=== PATIENT | female | born 1980 | race African-American/Black ===

== ENCOUNTER 2020-08-08 01:12 | Outpatient (CLI) | payer OTHER, SELFPAY ==
[2020-08-08 18:47] LABS: SARS-CoV-2 RNA PCR Negative
== END 2020-08-08 01:13 | disposition home or self-care (01) ==
LOC: ANHCOVIDDT 01:12
PROVIDERS: Visit Provider Student in an Organized Health Care Education/Training Program
DX: Z20.822 Contact with and (suspected) exposure to COVID-19 (principal)
CPT/HCPCS: C9803; U0003; U0005

== ENCOUNTER 2020-08-11 09:31 | Outpatient (CLI) | payer OTHER, SELFPAY ==
[2020-08-11 09:51] LABS: Hematocrit 37.3 % (37.0-47.0); Hemoglobin 12.1 g/dL (12.0-15.0); Mean Corpuscular HGB Conc 32.4 g/dl (32-36); Mean Corpuscular Hemoglobin 26.7 pg (26-34); Mean Corpuscular Volume 82.3 fl (80-100); Mean Platelet Volume 9.5 fl (7.4-10.4); Platelet Count Result 315 k/mm3 (150-375); Red Blood Count 4.53 M/mm3 (4.2-5.4); Red Cell Distribution Width 14.1 % (11.5-14.5); White Blood Count 5.5 K/mm3 (4.5-10.0)
== END 2020-08-11 09:32 | disposition home or self-care (01) ==
LOC: ANHSURGERY 09:32
PROVIDERS: Visit Provider Student in an Organized Health Care Education/Training Program
DX: N94.6 Dysmenorrhea, unspecified (principal); Z01.818 Encounter for other preprocedural examination
CPT/HCPCS: 36415; 85027; 86850; 86900; 86901

== ENCOUNTER 2020-08-12 01:23 | Day surgery (SDC) | payer OTHER, SELFPAY ==
[2020-08-10 12:42] VITALS: BMI 24.8
[2020-08-12] VITALS (12 sets, daily range): BP systolic 109–134; BP diastolic 68–84; PULSE 56–76; RESP 10–16; TEMP 36.1–36.6; O2SAT 97–100
--- NOTE | 2020-08-12 08:01 | PM.IMHP ---
H&P: HPI History of Present Illness Date/Time: 08/12/20 08:01 Chief Complaint: abnormal uterine bleeding Narrative: Ifeanyi Rojas is a 40 year old female who presents for robotic TLH/BS for abnormal uterine bleeding. Pt initially presented to the office complaining of heavy and irregular menses. Pt was having bleeding every 2 weeks and heavy enough to soak through her clothes. Pt has tried multiple medical treatments in the past without improvement in her bleeding. Review of Systems Cardiovascular: Cardiovascular: Denies chest pain, Denies leg edema, Denies palpitations, Denies dyspnea and Denies dyspnea on exertion Respiratory: Respiratory: Denies cough, Denies dyspnea and Denies dyspnea on exertion Gastrointestinal: Gastrointestinal: Denies abdominal pain, Denies constipation, Denies diarrhea, Denies nausea and Denies vomiting Genitourinary: Genitourinary: Denies hematuria, Denies urinary frequency, Denies dysuria, Denies pelvic pain, Denies urinary incontinence and Denies vaginal discharge Neurologic: Reports system reviewed and no additional complaints, except as documented Psychiatric: Psychiatric: Reports no additional psychiatric complaints Endocrine: Endocrine: Denies palpitations [facility] Social History Social History Smoking packs per day: 0.5 Smoking cigarettes per day: 10.0 Years smoked: 20 Smoking pack-years: 10.00 Smoking status: Current every day smoker Tobacco type: cigarettes Alcohol intake: current Drinks per week: 2 Alcohol use details: 1-2 DRINKS EVERY COUPLE OF WEEKS Substance use: never Substance use type: does not use Living arrangements: with family Spiritual care concerns: No Meds Home Medications and Allergies Home Medications Medication Instructions Recorded Confirmed Type No Home Medications 08/10/20 08/10/20 History Allergies Allergy/AdvReac Type Severity Reaction Status Date / Time No Known Allergies Allergy Unverified 10/26/17 14:06 Exam Const: General: no acute distress Eyes: EOM: EOMs intact bilaterally Neck: Neck: supple Thyroid: thyroid normal Chest: Breast/axilla inspection: normal inspection of the breasts Breast/axilla palpation: normal palpation of the breasts, normal palpation of the axillae and no axillary lymphadenopathy Resp: Effort & Inspection: normal respiratory effort Auscultation: clear to auscultation bilaterally Cardio: Rate: regular rate Rhythm: regular rhythm GI: Inspection: non-distended GI Palp: Yes Soft to palpation, No Tenderness to palpation present (GI) and No Guarding due to palpation present (GI) Auscultation: normal bowel sounds : General: No bladder normal to palpation External Female Exam: normal external appearance Speculum Exam - Vagina: normal vaginal discharge and No vaginal bleeding Speculum Exam - Cervix: nontender Bimanual exam- vagina & uterus: No bladder normal to palpation and No Cervical tenderness present OB/external & speculum: No vaginal bleeding Skin: General skin exam: normal color and no rashes or lesions noted Neuro: Cognition (Neuro): normal cognition Speech: normal speech Extrem: General: normal to inspection and no edema Psych: Mental Status: mental status grossly normal Affect: normal affect Assessment and Plan Assessment and plan (1) Abnormal uterine bleeding (AUB): Code(s): N93.9 - Abnormal uterine and vaginal bleeding, unspecified Status: Acute Assessment and Plan: pt reports heavy irregular menses occuring every 2 weeks and bleeding through clothing pt has failed multiple hormonal medication treatments US showed uterus measuring 7.8x5.5x4.5 cm will plan for robotic TLH/BS
--- NOTE | 2020-08-12 08:05 | WPDHPUPDATE1 ---
History and Physical Update Update Date/Time: 08/12/20 08:05 History and Physical has been reviewed, including an updated exam of the patient. There are NO changes in the patient's condition. Risks, benefits, and alternatives have been discussed and questions answered. Patient agrees to proceed with procedure.
[2020-08-12] MEDS: ACETAMINOPHEN 500 MG TABLET 1000 MG PO (12:22)
[2020-08-12] MEDS: LACTATED RINGERS 1,000 ML 30 ML IV CONT ×2 (12:30→17:44)
[2020-08-12] MEDS: KETOROLAC 15 MG/ML VIAL (*BKC) IV PUSH (12:35)
--- NOTE | 2020-08-12 13:27 | WPDANESEPPF ---
Anes - Initial Pre Proc Eval Procedure: Operation Date: 08/12/20 14:00 Proposed Procedures p Robotic Assisted Total Vaginal Hysterectomy, Bilateral Salpingectomy - Phil Banerjee MD Date/Time: 08/12/20 13:27 Surgeon: Phil Banerjee MD Pre Op Diagnosis: Excessive bleeding, Dysmenorrhea Patient Data Age: 40 Gender: F Height: 5 ft 2 in Weight: 64 kg Last Vital Signs Temp 97.8 F 08/12/20 12:07 Pulse 76 08/12/20 12:07 Resp 14 08/12/20 12:07 BP 129/84 08/12/20 12:07 Pulse Ox 100 08/12/20 12:07 Allergies Allergy/AdvReac Type Severity Reaction Status Date / Time No Known Allergies Allergy Unverified 08/12/20 13:00 Home Medications Medication Instructions Recorded Confirmed Type No Home Medications 08/10/20 08/12/20 History Patient hx anesthesia problems: none Family hx anesthesia problems: none PMFSH Past Medical History Medical History (Updated 08/12/20 @ 13:18 by Jad Beverly MD) Bronchitis history of Social History Social History Smoking packs per day: 0.5 Smoking cigarettes per day: 10.0 Years smoked: 20 Smoking pack-years: 10.00 Smoking status: Current every day smoker Tobacco type: cigarettes Alcohol intake: current Drinks per week: 2 Alcohol use details: 1-2 DRINKS EVERY COUPLE OF WEEKS Substance use: never Substance use type: does not use Living arrangements: with family Spiritual care concerns: No Anes - Eval Final PreProcedure Day of Procedure 08/12/20 13:27 Patient weight: overweight Heart: regular rate and rhythm Lungs: clear to auscultation Airway: Mallampati scale class II Neurological: alert and oriented Last oral intake: >/= 8 hours ASA classification: II Emergent: no Anesthetic plan: proceed Anesthesia type and monitoring: general ETT and standard monitoring Informed Consent: The patient's anesthetic plan and its attendant risks and benefits were discussed with the patient/family/POA. Questions were solicited and answers provided to the satisfaction of the patient/family/POA.
--- NOTE | 2020-08-12 14:53 | SUR.PREOP ---
1420 informed pt of delay in procedure.
[2020-08-12] MEDS: ceFAZolin 2 GM/D5W 50 ML 2 GM/50 ML BAG IVPB (15:35)
[2020-08-12] MEDS: LIDO 1%/EPINEPHRINE 1:100,000 50 ML VIAL 30 ML INFILTRATE (16:21)
--- NOTE | 2020-08-12 17:29 | PM.PROC ---
Procedure Note - Detailed Date of procedure: 08/12/20 Pre-op diagnosis: Excessive bleeding, Dysmenorrhea Procedure performed: Robotic assisted total laparoscopic hysterectomy bilateral salpingectomy 30 min of lysis of adhesions Description of procedure: PROCEDURE IN DETAIL: After the patient was appropriately consented she was taken to the operating room where she was transferred to the table in a dorsal supine position. General anesthesia was then induced with endotracheal intubation. The patient was transferred to a dorsal lithotomy position using adjustable yellow-fin stirrups. Her position was adjusted for appropriate support of her lower back and lower extremities. The patient was prepped and draped. A transurethral tapia catheter was place. The cervix was sequentially dilated and a 8 cm uterine manipulator placed in typical fashion about a 3.5 cm HAROON ring. Gloves were changed. After confirmation of a functioning orogastric tube, lidocaine was injected at Ruiz's point in the LUQ and a 5mm incision was made. A 5mm Optiview trocar was then inserted into the abdominal cavity under direct visualization and done so without complication. The abdomen was then insufflated with approximately 2-3L of CO2 establishing a pneumoperitoneum and the patient was placed in Trendelenburg position. Pelvic survery was performed and showed dense adhesions of the bowel omentum to the midline anterior abdominal wall. An 8mm torcar was placed in the RLQ under direct visualization. Laparoscopic scissors were then used to take down the midline adhesions. Lysis of adhesions took 30 min. Just above the umbilicus in the midline, a 8 mm incision made after injection of lidocaine and a 8 mm bladeless trocar advanced into the abdominal cavity under direct visualization without incident. We subsequently placed a robotic port in a similar fashion, in the left mid-quadrant, 10cm lateral to the midline port. The robot was then docked. The Left fallopian tube was identified out to the fimbrae. The fallopian tube was then coagulated and ligated along the inferior mesosalpinx toward the uterus. The utero-ovarian ligament was identified and ligated. The Left round ligament was divided and the posterior aspect of the broad ligament was then skeletonized down to the level of the internal cervical os, mobilizing the ureter laterally. The bladder flap was then created sharply. The ipsilateral uterine artery was skeletonized, bipolar cauterized and transected. A similar procedure was performed on the contralateral side, developing the pelvic spaces, coagulating and dividing the IP away from the ureter, completing the bladder flap, and skeletonizing, ligating, and dividing the uterine artery on this side. We ensured the vaginal pneumo-occluder balloon was insufflated and made a circumferential colpotomy using monopolar current. The uterus, cervix, and bilateral tubes were then delivered transvaginally. I then re-approximated the colpotomy with a single interuppted 0-vicryl at the left apex and running #1 PDO Quill suture in 2 layers. Following this dissection, the abdomen and pelvis were copiously irrigated and all surgical sites found to be hemostatic. Skin sites were reapproximated with 4-0 Vicryl in a subcuticular fashion. Steri-Strips were placed. The patient tolerated the procedure well. Sponge, needle and instrument counts were correct x 2 and the patient was taken to recovery in stable condition. Ancef was given for antimicrobial prophylaxis. The patient had SCD's on for VTE prophylaxis during the entire procedure. Anesthesia: GETA Surgeon: Phil Banerjee MD Estimated blood loss (mL): 50 Drains: No Packing: No Pathology: yes (uterus, cervix, bilateral fallopian tubes) Complications: No immediate complications Condition: stable Disposition: PACU Findings: Dense adhesions between the omentum and the midline anterior abdominal wall
[2020-08-12] MEDS: fentaNYL CITRATE INJ (*CRX) 100 MCG/2 ML VIAL 25 MCG IV PUSH ×2 (18:07→18:20)
--- NOTE | 2020-08-12 18:46 | ADMGEN ---
This patient, Ifeanyi Rojas, was admitted to room #287. Patient/family oriented to hospital policies and general routines including ID bracelet, bed and alarms, visiting hours, pain management, procedures, bathroom and other care routines, personal items, smoking policy, room service/diet, and visiting hours. Information on how to activate the Rapid Response Team has been discussed. Patient/Family are encouraged to report perceived risks to care and to ask questions if they do not understand what they are told or what they should do.
[2020-08-12] MEDS: DEXTROSE 5%/LACTATED RINGERS 1,000 ML 125 ML IV CONT (19:26)
[2020-08-12] MEDS: KETOROLAC 30 MG/ML VIAL (*BKC) IV PUSH (19:26)
[2020-08-12] MEDS: HYDROcodone/acetaminophen (*CRX) 10-325 MG TABLET 1 TAB PO (23:24)
[2020-08-13] VITALS: BP 106/60; PULSE 61; RESP 16; TEMP 36.5; O2SAT 96
[2020-08-13] MEDS: HYDROcodone/acetaminophen (*CRX) 10-325 MG TABLET 1 TAB PO ×2 (02:33→10:02)
[2020-08-13 04:00] VITALS: BP 111/63; PULSE 65; RESP 16; TEMP 36.6; O2SAT 98
[2020-08-13] MEDS: KETOROLAC 30 MG/ML VIAL (*BKC) IV PUSH (04:05)
[2020-08-13 04:49] LABS: Basophils Percent Auto 0.1 % (0.2-1.2); Hematocrit 33.1 % (37.0-47.0); Hemoglobin 10.6 g/dL (12.0-15.0); Immature Granulocyte Absolute 0.07 K/mm3 (0.00-0.031); Immature Granulocyte Percent A 0.5 % (0-0.5); Lymphocytes Absolute Auto 0.69 K/mm3 (0.9-3.2); Lymphocytes Percent Auto 4.7 % (18.3-44.2); Mean Corpuscular Hemoglobin 26.2 pg (26-34); Mean Corpuscular Volume 81.7 fl (80-100); Mean Platelet Volume 10.1 fl (7.4-10.4); Monocytes Absolute Auto 0.5 K/mm3 (0.1-0.6); Monocytes Percent Auto 3.6 % (2.6-8.5); Neutrophils Absolute Auto 13.2 K/mm3 (1.3-6.7); Neutrophils Percent Auto 91.1 % (45.5-73.1); Platelet Count Result 304 k/mm3 (150-375); Red Blood Count 4.05 M/mm3 (4.2-5.4); White Blood Count 14.6 K/mm3 (4.5-10.0)
[2020-08-13 05:15] LABS: Blood Urea Nitrogen 9 mg/dL (7-17); Calcium 8.4 mg/dL (8.4-10.2); Carbon Dioxide 26 mmol/L (22-30); Estimated CRCL calculation 73 ml/min; Estimated Glomerular Filt Rate > 60; Glucose 123 mg/dL (65-105); Sodium 133 mmol/L (137-145)
[2020-08-13 06:25] LABS: Anion Gap 1 mmol/L (8-16); Chloride 106 mmol/L (98-107)
--- NOTE | 2020-08-13 07:15 | PM.DS ---
DS: Admitting Diagnosis Admitting Diagnosis Admitting Diagnosis: abnormal uterine bleeding DS: Summary Hospital Course Hospital Course: Ifeanyi Rojas was admitted after robotic assisted total laparoscopic hysterectomy and bilateral salpingectomy for abnormal uterine bleeding and pelvic pain. The above procedure was performed with no complications. She is doing well post op. She states her pain is well controlled with PO medications. She reports minimal bleeding. She is ambulating up to the chair. Her tapia catheter was removed. She is tolerating PO without N/V. She reports passing flatus. Status at Discharge Overall status at discharge: patient is progressing back to baseline Time Spent with Patient Time attestation: Total time spent providing and/or coordinating discharge services: Time spent: Less than 30 minutes Exam Const: General: comfortable and no acute distress Limitations: no limitations Resp: Effort & Inspection: normal respiratory effort Auscultation: clear to auscultation bilaterally Cardio: Rate: regular rate Rhythm: regular rhythm GI: Inspection: non-distended GI Palp: Yes Soft to palpation, Yes Tenderness to palpation present (GI) (milder tenderness to deep palpation) and No Guarding due to palpation present (GI) Auscultation: normal bowel sounds Other: incisions C/D/I covered with dermabond Urinary Catheter: Urinary Catheter: urine clear Skin: General skin exam: normal color Extrem: General: normal to inspection Psych: Mental Status: mental status grossly normal Affect: normal affect DS: Data Data Completed and Pending Pending studies at discharge: Pending at discharge 08/12/20 17:28 Surgical [PTH] Routine Labs on day of discharge: Labs from last 24 hours 08/13/20 08/13/20 04:21 04:21 WBC 14.6 H RBC 4.05 L Hgb 10.6 L Hct 33.1 L MCV 81.7 MCH 26.2 MCHC 32.0 RDW 14.0 Plt Count 304 MPV 10.1 Immature Gran % (Auto) 0.5 Neut % (Auto) 91.1 H Lymph % (Auto) 4.7 L [place] % (Auto) 3.6 Eos % (Auto) 0.0 Baso % (Auto) 0.1 L Lymph # (Auto) 0.69 L [place] # (Auto) 0.5 Eos # (Auto) 0.0 Baso # (Auto) 0.0 Abs Immat Gran (auto) 0.07 H Absolute Neuts (auto) 13.2 H Absolute Nucleated RBC 0.0 Nucleated RBC % 0.0 Sodium 133 L Potassium 4.0 Chloride 106 Carbon Dioxide 26 Anion Gap 1 L BUN 9 Creatinine 0.70 Estim Creat Clear Calc 73 Estimated GFR > 60 Glucose 123 H Calcium 8.4 Discharge Plan Discharge Discharging Clinician: Phil Banerjee Patient Disposition: Home, Self-Care Activity: as tolerated and pelvic rest Diet: regular Patient Instructions: Antibiotic Form, Laparoscopic Hysterectomy (DC) Stand Alone Forms: General Discharge Information Follow-up/Referrals: Phil Banerjee MD [Physician] - 2 Weeks Discharge Medications: New oxycodone-acetaminophen [Percocet] 5-325 mg tablet 1 tablet PO Q6H PRN (Reason: pain) Qty: 28 RF: 0 docusate sodium [Colace] 100 mg capsule 100 mg PO BID Qty: 14 RF: 0 ibuprofen 600 mg Tablet 600 mg PO Q6H PRN (Reason: Cramping) Qty: 30 RF: 0 No Action No Home Medications RF: 0 Date of admission: 08/12/20 18:46 Primary Care Provider: PHYSICIAN,CONTROL ROOM OPERATOR Admitting Provider: Phil Banerjee Attending physician on admission: Phil Banerjee Condition: Stable
[2020-08-13 08:00] VITALS: RESP 16
[2020-08-13 08:05] VITALS: BP 99/58; PULSE 70; RESP 16; TEMP 37.4; O2SAT 99
--- NOTE | 2020-08-13 08:40 | WPDANESPN ---
Anes - Prog Note Post-Op Date/Time: 08/13/20 08:40 Cardiovascular status: normal Respiratory status: normal Airway patency: baseline Mental status: baseline Post-Op hydration status: normal Vital Signs: Last Vital Signs Temp 36.6 C 08/13/20 04:00 Pulse 65 08/13/20 04:00 Resp 16 08/13/20 04:00 BP 111/63 08/13/20 04:00 Pulse Ox 98 08/13/20 04:00 Pain Score (VAS): 07/19 I/O: Intake & Output 08/12/20 08/13/20 08/13/20 23:59 07:59 15:59 Intake Total 250 1400 Output Total 100 850 Balance 150 550 Laboratory Tests 08/13/20 04:21 08/13/20 04:21 08/13/20 08/13/20 04:21 04:21 WBC 14.6 H RBC 4.05 L Hgb 10.6 L Hct 33.1 L MCV 81.7 MCH 26.2 MCHC 32.0 RDW 14.0 Plt Count 304 MPV 10.1 Immature Gran % (Auto) 0.5 Neut % (Auto) 91.1 H Lymph % (Auto) 4.7 L [place] % (Auto) 3.6 Eos % (Auto) 0.0 Baso % (Auto) 0.1 L Lymph # (Auto) 0.69 L [place] # (Auto) 0.5 Eos # (Auto) 0.0 Baso # (Auto) 0.0 Abs Immat Gran (auto) 0.07 H Absolute Neuts (auto) 13.2 H Absolute Nucleated RBC 0.0 Nucleated RBC % 0.0 Sodium 133 L Potassium 4.0 Chloride 106 Carbon Dioxide 26 Anion Gap 1 L BUN 9 Creatinine 0.70 Estim Creat Clear Calc 73 Estimated GFR > 60 Glucose 123 H Calcium 8.4 Post-procedural complaints: none Patient Feedback: Patient satisfied with anesthetic care.
[2020-08-13] MEDS: IBUPROFEN 600 MG TABLET PO (10:02)
[2020-08-13 11:25] VITALS: BP 91/50; PULSE 64; RESP 16; TEMP 37.1; O2SAT 96
== END 2020-08-13 13:38 | disposition home or self-care (01) ==
LOC: ANHSURGERY 11:56 → ANHOB2 08-13 07:16
PROVIDERS: Visit Provider Student in an Organized Health Care Education/Training Program
PROC: (CPT 58571; principal; 2020-08-12 14:00)
DX: N93.9 Abnormal uterine and vaginal bleeding, unspecified (principal); N94.6 Dysmenorrhea, unspecified; N73.6 Female pelvic peritoneal adhesions (postinfective); N80.0 Endometriosis of uterus; D25.0 Submucous leiomyoma of uterus; F17.210 Nicotine dependence, cigarettes, uncomplicated
CPT/HCPCS: 58571; S2900; 36415; 80048; 85025; 85027; 86850; 86900; 86901; 88307; A9270; J0690; J1100; J1170; J1885; J2250; J2405; J2704; J2710; J3010; J7030; J7120; J7121

== ENCOUNTER 2021-11-02 07:47 | Outpatient (CLI) | payer OTHER, SELFPAY ==
--- NOTE | ~2021-11-02 | MM_ITS ---
EXAMINATION: MM screening kofi BI w chaim HISTORY: Screening TECHNIQUE: Craniocaudal and mediolateral oblique 3-D tomosynthesis images were obtained and synthetic 2-D images were generated. CAD analysis was submitted and interpreted. COMPARISON: No prior mammogram is available for comparison at this institution. BREAST PARENCHYMAL COMPOSITION: There are scattered areas of fibroglandular density. FINDINGS: There is no evidence of suspicious mass, calcification, or architectural distortion to sugg est malignancy in either breast. There has been no suspicious interval change. IMPRESSION: 1. No mammographic evidence of malignancy. 2. Recommend routine screening mammography in one year. BI-RADS Category 1: Negative Reviewed, dictated and finalized at location A.
== END 2021-11-02 07:48 | disposition home or self-care (01) ==
PROVIDERS: Visit Provider Advanced Practice Midwife
DX: Z12.31 Encounter for screening mammogram for malignant neoplasm of breast (principal)
CPT/HCPCS: 77063; 77067

== ENCOUNTER 2022-04-21 16:09 | Emergency (ER) | payer OTHER, SELFPAY ==
[2022-04-21] VITALS (17 sets, daily range): BP systolic 113–150; BP diastolic 76–98; PULSE 80–96; RESP 11–22; TEMP 36.4; O2SAT 98–100
--- NOTE | ~2022-04-21 | XR_ITS ---
EXAMINATION: XR chest 2V DATE: 04/21/2022 17:03 INDICATION: Right-sided chest pain TECHNIQUE: Frontal and lateral views of the chest are obtained COMPARISON: 07/21/2017 FINDINGS: The lungs are free of acute opacities. No pleural effusion or pneumothorax. The cardiomedia stinal silhouette is normal. The visualized bones and soft tissues are unremarkable. IMPRESSION: 1. No acute cardiopulmonary abnormality. Reviewed, dictated and finalized at location F.
--- NOTE | ~2022-04-21 | CT_ITS ---
EXAMINATION: CT cervical spine wo con DATE: 04/21/2022 18:14 INDICATION: Right-sided weakness and paresthesia TECHNIQUE: Computed tomography (CT) of the cervical spine was performed without intravenous contrast. The dose-length product (DLP) was 522.25 mGy-cm. Automated exposure control and iterative reconstruc tion technique were employed. COMPARISON: None FINDINGS: There is straightening of the cervical spine which can be positional or due to muscular spa sm. Alignment is normal. There is no fracture. There is mild loss of intervertebral disc space height at C5-6. Small degenerative osteophytes project from the anterior endplates of multiple vertebral natalie dies. The odontoid is intact. The prevertebral soft tissues are normal. There is a 1.6 cm nodule of t he right thyroid lobe. IMPRESSION: 1. Mild cervical spondylosis without acute findings. Reviewed, dictated and finalized at location F.
--- NOTE | ~2022-04-21 | CT_ITS ---
EXAMINATION: CT brain wo con INDICATION: Right-sided weakness and paresthesia COMPARISON: 01/18/2017 TECHNIQUE: Standard unenhanced head CT. The dose-length product (DLP) was 529.67 mGy-cm. The mA was a djusted according to patient size. Iterative reconstruction technique was employed. FINDINGS: There is no intracranial hemorrhage, acute infarction, or abnormal mass lesion. The ventric les are normal. There is no abnormal mass effect or midline shift. The francois-white matter differentiat ion is normal. The basal cisterns are patent. The orbits are normal. The paranasal sinuses, mastoids and calvarium are normal. IMPRESSION: 1. No acute intracranial abnormality. Reviewed, dictated and finalized at location F.
--- NOTE | 2022-04-21 16:13 | ECG_ITS ---
Measurements Intervals [place] Rate: 92 P: 47 DC: 146 QRS: 5 QRSD: 100 T: 29 QT: 334 QTc: 414 Interpretive Statements SINUS RHYTHM LOW QRS VOLTAGE IN PRECORDIAL LEADS [QRS DEFLECTION < 1.0 mV IN CHEST LEADS] INCOMPLETE RIGHT BUNDLE BRANCH BLOCK [90+ ms QRS DURATION, TERMINAL R IN V1/V2, 40+ ms S IN I/aVL/V4/V5/V6] NO PREVIOUS ECG AVAILABLE FOR COMPARISON Electronically Signed On 04-21-2022 18:41:10 CDT by Susan Villeda M.D.
[2022-04-21 16:41] LABS: Basophils Percent Auto 0.3 % (0.2-1.2); Eosinophils Absolute Auto 0.1 K/mm3 (0-0.3); Eosinophils Percent Auto 1.9 % (0-4.4); Hematocrit 40.9 % (37.0-47.0); Hemoglobin 14.2 g/dL (12.0-15.0); Immature Granulocyte Absolute 0.03 K/mm3 (0.00-0.031); Immature Granulocyte Percent A 0.5 % (0-0.5); Lymphocytes Absolute Auto 1.88 K/mm3 (0.9-3.2); Lymphocytes Percent Auto 29.9 % (18.3-44.2); Mean Corpuscular HGB Conc 34.7 g/dl (32-36); Mean Corpuscular Volume 89.3 fl (80-100); Mean Platelet Volume 10.1 fl (7.4-10.4); Monocytes Absolute Auto 0.4 K/mm3 (0.1-0.6); Monocytes Percent Auto 6.2 % (2.6-8.5); Neutrophils Absolute Auto 3.9 K/mm3 (1.3-6.7); Neutrophils Percent Auto 61.2 % (45.5-73.1); Platelet Count Result 258 k/mm3 (150-375); Red Blood Count 4.58 M/mm3 (4.2-5.4); White Blood Count 6.3 K/mm3 (4.5-10.0)
[2022-04-21 16:51] LABS: Alanine Aminotransferase 26 U/L (6-35); Albumin Level 4.8 g/dL (3.5-5.1); Alkaline Phosphatase 45 U/L (38-126); Anion Gap 13 mmol/L (8-16); Aspartate Amino Transferase 30 U/L (14-36); Bilirubin,Total 0.3 mg/dL (0.2-1.3); Blood Urea Nitrogen 9 mg/dL (7-17); Calcium 9.4 mg/dL (8.4-10.2); Carbon Dioxide 26 mmol/L (22-30); Chloride 101 mmol/L (98-107); Estimated CRCL calculation 95 ml/min; Estimated Glomerular Filt Rate > 60; Glucose 85 mg/dL (65-110); Lipase 46 U/L (23-300); Potassium 3.2 mmol/L (3.4-5.0); Sodium 140 mmol/L (137-145)
[2022-04-21 16:56] LABS: INR 1.1; Prothrombin Time 13.6 Seconds (11.1-14.7)
[2022-04-21 16:57] LABS: Partial Thromboplastin Time 29.8 SECONDS (22.3-36.8)
[2022-04-21 17:03] LABS: Troponin I < 0.012 ng/mL (0.000-0.034)
--- NOTE | 2022-04-21 17:37 | ED.CHESTPAIN ---
HPI - Chest Pain General Chief Complaint: Chest Pain <RENATO Dash Last Filed: 04/21/22 19:35> Stated Complaint: chest pain <RENATO Dash Last Filed: 04/21/22 19:35> Time Seen by Provider: 04/21/22 17:36 <RENATO Dash Last Filed: 04/21/22 19:35> History of Present Illness HPI narrative: Patient is a 42-year-old healthy female here for evaluation of right arm pain and paresthesias for the past 2 weeks. Patient states the pain is intermittent in nature, but has been increasing in frequency. States the pain begins in her neck and shoots down her arm, worse with movement of her neck. She is left-handed. Presents to the ED today because she developed some right-sided chest pain about 18 hours ago. The pain is sharp and shooting in the right side of her chest, does not radiate. It has eased up without intervention. Denies history of blood clots, control use, cardiac history, family history of cardiac issues, leg swelling or shortness of breath. <RENATO Dash Last Filed: 04/21/22 19:35> Related Data Allergies/Adverse Reactions: Allergies Allergy/AdvReac Type Severity Reaction Status Date / Time No Known Allergies Allergy Unverified 04/21/22 17:50 <RENATO Dash Last Filed: 04/21/22 19:35> Review of Systems Review of Systems: Gen.: Denies fevers or chills Eyes: Denies eye pain or visual change ENT: Denies congestion Respiratory: Denies shortness of breath or cough CV: Reports chest pain. Denies palpitations GI: Denies abdominal pain nausea, emesis or diarrhea denies burning, urgency, frequency or hematuria Musculoskeletal: Reports right-sided neck pain. Denies back pain or muscle pain Neuro: Denies numbness, tingling, weakness or focal weakness Skin: Denies rash Except as documented, all other systems reviewed and negative <RENATO Dash Last Filed: 04/21/22 19:35> [facility] Past Medical History Medical History: Medical History (Updated 04/21/22 @ 18:51 by Shelby Mcleod PA-C) Bronchitis history of <Shelby Mcleod PA-C - Last Filed: 04/21/22 19:35> Social History Social History: Social History Smoking packs per day: 0.5 Smoking cigarettes per day: 10.0 Years smoked: 20 Smoking pack-years: 10.00 Smoking status: Current every day smoker Tobacco type: cigarettes Alcohol intake: current Drinks per week: 2 Alcohol use details: 1-2 DRINKS EVERY COUPLE OF WEEKS Substance use: never Substance use type: does not use Spiritual care concerns: No <Shelby Mcleod PA-C - Last Filed: 04/21/22 19:35> Course Vital Signs Vital signs: Vital Signs Temperature 97.6 F 04/21/22 16:32 Pulse Rate 96 04/21/22 16:32 Respiratory Rate 14 04/21/22 16:32 Blood Pressure 113/85 04/21/22 16:32 Pulse Oximetry 99 04/21/22 16:32 Oxygen Delivery Room Air 04/21/22 16:32 Temperature 97.6 F 04/21/22 16:32 Pulse Rate 84 04/21/22 19:01 Respiratory Rate 15 04/21/22 19:01 Blood Pressure 132/83 04/21/22 19:01 Pulse Oximetry 98 04/21/22 19:01 Oxygen Delivery Room Air 04/21/22 16:32 <Shelby Mcleod PA-C - Last Filed: 04/21/22 19:35> Vital Signs Temperature 97.6 F 04/21/22 16:32 Pulse Rate 96 04/21/22 16:32 Respiratory Rate 14 04/21/22 16:32 Blood Pressure 113/85 04/21/22 16:32 Pulse Oximetry 99 04/21/22 16:32 Oxygen Delivery Room Air 04/21/22 16:32 Temperature 97.6 F 04/21/22 16:32 Pulse Rate 84 04/21/22 19:01 Respiratory Rate 15 04/21/22 19:01 Blood Pressure 132/83 04/21/22 19:01 Pulse Oximetry 98 04/21/22 19:01 Oxygen Delivery Room Air 04/21/22 16:32 <Elsy Elder MD - Last Filed: 04/21/22 22:14> MDM - Chest Pain MDM Narrative Medical decision making narrative: 42-year-old healthy female here for evaluation of intermittent
--- NOTE | 2022-04-21 17:40 | PC.NURSE ---
ERPA at bedside for pt assessment.
[2022-04-21] MEDS: KETOROLAC 30 MG/ML VIAL (*BKC) IM (18:24)
[2022-04-21] MEDS: LIDOCAINE 5% PATCH 1 PATCH TRANSDERM (18:25)
== END 2022-04-21 19:30 | disposition home or self-care (01) ==
PROVIDERS: Emergency Medicine; Emergency Provider General Practice
DX: M47.812 Spondylosis without myelopathy or radiculopathy, cervical region (principal); F17.210 Nicotine dependence, cigarettes, uncomplicated
CPT/HCPCS: 36415; 70450; 71046; 72125; 80053; 83690; 84484; 85025; 85610; 85730; 93005; 96372; 99284; A9270; J1885

== ENCOUNTER 2023-03-30 21:55 | Emergency (ER) | payer OTHER, SELFPAY ==
--- NOTE | ~2023-03-30 | XR_ITS ---
XR chest 2V DATE: 03/30/2023 23:41 INDICATION: Mid chest pain TECHNIQUE: 2 views, PA and lateral projections COMPARISON: 04/21/2022 portable AP chest 07/21/2017 CTA chest FINDINGS: Normal heart size. No hilar or mediastinal enlargement. No pulmonary infiltrate or consolid ation, pleural effusion or pulmonary vascular congestion or pneumothorax. Included skeletal structures are unremarkable. IMPRESSION: No active cardiopulmonary disease Reviewed, dictated and finalized at location A.
[2023-03-30 21:58] VITALS: BP 167/96; PULSE 80; RESP 18; TEMP 36.6; O2SAT 100
--- NOTE | 2023-03-30 22:02 | ECG_ITS ---
Measurements Intervals [place] Rate: 70 P: 30 OR: 161 QRS: -2 QRSD: 99 T: 14 QT: 368 QTc: 397 Interpretive Statements SINUS RHYTHM BORDERLINE T WAVE ABNORMALITY- ANTERIOR LEADS BORDERLINE ECG COMPARED TO ECG 04/21/2022 16:30:32 NO SIGNIFICANT CHANGES Electronically Signed On 03-31-2023 6:21:24 CDT by Yoan Lackey D.O.
[2023-03-30 22:41] LABS: Basophils Percent Auto 0.3 % (0.2-1.2); Eosinophils Absolute Auto 0.1 K/mm3 (0-0.3); Hematocrit 37.9 % (37.0-47.0); Hemoglobin 12.8 g/dL (12.0-15.0); Immature Granulocyte Absolute 0.02 K/mm3 (0.00-0.031); Immature Granulocyte Percent A 0.3 % (0-0.5); Lymphocytes Absolute Auto 2.19 K/mm3 (0.9-3.2); Lymphocytes Percent Auto 36.4 % (18.3-44.2); Mean Corpuscular HGB Conc 33.8 g/dl (32-36); Mean Platelet Volume 9.8 fl (7.4-10.4); Monocytes Absolute Auto 0.4 K/mm3 (0.1-0.6); Neutrophils Absolute Auto 3.3 K/mm3 (1.3-6.7); Platelet Count Result 276 k/mm3 (150-375); Red Blood Count 4.26 M/mm3 (4.2-5.4); Red Cell Distribution Width 11.9 % (11.5-14.5)
[2023-03-30 22:51] LABS: Alanine Aminotransferase 21 U/L (6-35); Albumin Level 4.1 g/dL (3.5-5.1); Alkaline Phosphatase 40 U/L (38-126); Anion Gap 7 mmol/L (8-16); Aspartate Amino Transferase 28 U/L (14-36); Bilirubin,Total 0.3 mg/dL (0.2-1.3); Blood Urea Nitrogen 13 mg/dL (7-17); Calcium 8.7 mg/dL (8.4-10.2); Carbon Dioxide 23 mmol/L (22-30); Chloride 106 mmol/L (98-107); Estimated CRCL calculation 94 ml/min; Estimated Glomerular Filt Rate > 60; Glucose 110 mg/dL (65-110); Lipase 73 U/L (23-300); Potassium 3.6 mmol/L (3.4-5.0); Sodium 136 mmol/L (137-145)
[2023-03-30 22:58] LABS: Prothrombin Time 13.1 Seconds (11.1-14.7)
[2023-03-30 22:59] LABS: Partial Thromboplastin Time 28.8 SECONDS (22.3-36.8)
[2023-03-30 23:02] LABS: Troponin I < 0.012 ng/mL (0.000-0.034)
[2023-03-30 23:15] VITALS: BP 134/80; PULSE 69; RESP 12; O2SAT 99
[2023-03-30 23:17] VITALS: PULSE 68
--- NOTE | 2023-03-31 00:07 | ED.CHESTPAIN ---
HPI - Chest Pain General Chief Complaint: Chest Pain Stated Complaint: chest pain Time Seen by Provider: 03/30/23 23:00 Source: patient Limitations: no limitations History of Present Illness HPI narrative: Patient is a 42-year-old female present to the emergency department complaining of chest pain. Patient states she gradually noticed chest discomfort this morning while at rest, using a went to sleep and then woke back up around approximately 9 PM and notes that the pain was still present prompting her to come in to seek further evaluation. Patient states the pain feels like her chest is caving in, its in the middle of her chest, no radiation of the pain, intermittent in nature, has not tried anything for the pain, has not noticed anything making the pain better or worse and denies any history of this pain in the past. Patient denies nausea, vomiting, shortness of breath, cough, fever, recent injuries, recent illness, diarrhea, melena, hematochezia, vaginal bleeding, abdominal pain, rash, numbness, weakness, sore throat, nasal congestion, headache, vision changes. Patient states she has been having generalized body aches for the past approximately 3 days preceding this. 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 Patient also notes that she has noticed some left anterior wrist throbbing discomfort more so this morning that radiates into her first and second digit, worse when she flexes her wrist. Patient also notes that she is having some right-sided shoulder discomfort that is burning and throbbing and constant and has not noticed anything making the pain better or worse and denies any history of neck pain. Patient admits to a history of hyperlipidemia and tobacco use. Patient denies control use and had a hysterectomy 4 years ago. Patient denies diaphoresis, palpitations, unilateral lower extremity swelling, history of blood clots. Related Data Allergies Allergy/AdvReac Type Severity Reaction Status Date / Time No Known Allergies Allergy Verified 03/30/23 23:15 Review of Systems Review of Systems: A 10 system review of systems was completed on the patient and is negative except for what is stated in the HPI. Nursing and ancillary documentation was reviewed. [facility] Past Medical History Medical History (Updated 03/31/23 @ 01:11 by Denilson Goodman DO) Bronchitis history of Social History Social History Smoking packs per day: 0.5 Smoking cigarettes per day: 10.0 Years smoked: 20 Smoking pack-years: 10.00 Smoking status: Current every day smoker Tobacco type: cigarettes Alcohol intake: current Drinks per week: 2 Alcohol use details: 1-2 DRINKS EVERY COUPLE OF WEEKS Substance use: never Substance use type: does not use Living arrangements: with family Spiritual care concerns: No Comments At time of signature, I have reviewed and agree with nursing past medical, surgical, social and family history unless otherwise noted. Please see the nursing chart for further information. There is no relevant family history pertinent to the presenting complaint. Exam Narrative: CONST: No acute distress. Well nourished. HENMT: Head is normocephalic and atraumatic. Moist mucous membranes. No posterior oropharynx erythema. EYES: No conjunctival icterus, injection, or pallor. PERRL. NECK: No meningeal signs. No JVD. No palpable cervical lymphadenopathy. No palpable thyromegaly. RESP: Able to speak in full sentences. Normal respiratory effort. CTAB. CARDIO: Regular rate. Regular rhythm. 2+ DP and radial pulses bilaterally. GI: Nondistended. No tenderness to palpation. Soft. Negative Abel sign. : No CVA tenderness to palpation. SKIN: No rashes or lesions noted on exposed skin. NEURO: Oriented x3. Moves all extremities. EXTREM/MSK: No pedal edema. No midline vertebral TTP or step-offs. Active range of motion i
[2023-03-31] MEDS: ACETAMINOPHEN 500 MG TABLET 1000 MG PO (00:19)
[2023-03-31 00:49] LABS: Creatine Kinase 131 U/L (30-135)
[2023-03-31 01:13] LABS: Influenza A QL RT-PCR Negative (Negative); Influenza B QL RT-PCR Negative (Negative); SARS-CoV-2 RNA PCR Negative (Negative)
[2023-03-31 02:19] VITALS: BP 129/83; PULSE 62; RESP 12; O2SAT 99
== END 2023-03-31 02:19 | disposition home or self-care (01) ==
PROVIDERS: Emergency Medicine; Emergency Provider Student in an Organized Health Care Education/Training Program
DX: R07.89 Other chest pain (principal); G56.02 Carpal tunnel syndrome, left upper limb; Z20.822 Contact with and (suspected) exposure to COVID-19; F17.210 Nicotine dependence, cigarettes, uncomplicated
CPT/HCPCS: 36415; 71046; 80053; 81025; 82550; 83690; 83735; 84484; 85025; 85610; 85730; 87636; 93005; 99284; A9270

== ENCOUNTER 2023-12-26 04:54 | Emergency (ER) | payer OTHER, SELFPAY ==
[2023-12-26] VITALS (7 sets, daily range): BP systolic 111–131; BP diastolic 69–89; PULSE 58–82; RESP 14–20; TEMP 36.7; O2SAT 95–99
--- NOTE | ~2023-12-26 | US_ITS ---
EXAMINATION: US abdomen limited DATE: 12/26/2023 07:39 INDICATION: Right upper quadrant abdominal pain. TECHNIQUE: Multiple grayscale and Doppler ultrasound images of the abdomen were obtained. COMPARISON: CT abdomen and pelvis 12/26/2023 FINDINGS: The visualized portions of the head, body, and tail of the pancreas are normal. There is di ffuse hepatic steatosis. There is a 6.2 cm hyperechoic mass in the liver, consistent with a hemangiom a. The gallbladder is normal in size. No gallstones or gallbladder wall thickening. There is no sonog raphic Abel's sign. The common duct is normal and measures 3 mm. IMPRESSION: 1. Diffuse hepatic steatosis. Reviewed, dictated and finalized at location E.
--- NOTE | ~2023-12-26 | CT_ITS ---
EXAMINATION: CT abdomen pelvis w con DATE: 12/26/2023 05:35 INDICATION: Right upper quadrant abdominal pain. TECHNIQUE: Computed tomography (CT) of the abdomen and pelvis was performed with 100 mL Omnipaque 350 intravenous contrast. Automated exposure control and iterative reconstruction technique were employe d. The dose-length product was 766.71 mGy-cm. COMPARISON: CT abdomen and pelvis 01/18/2017 FINDINGS: The visualized portions of the lung bases demonstrate mild atelectasis. No pleural effusion . The heart size is normal. No pericardial effusion. There is a 5.0 cm hemangioma in the liver. There is a 7 mm cyst in the liver. The gallbladder, spleen, pancreas, adrenal glands, and kidneys are norm al. There are no dilated loops of bowel. The appendix is normal. There are no pathologically enlarged lymph nodes. There is no free intraperitoneal fluid. There is mild thoracic spondylosis and moderate lumbar spondylosis. IMPRESSION: 1. No etiology for the patient's symptoms. Reviewed, dictated and finalized at location E.
--- NOTE | ~2023-12-26 | XR_ITS ---
EXAMINATION: XR chest 2V DATE: 12/26/2023 05:21 INDICATION: Chest pain radiating to the back. TECHNIQUE: Frontal and lateral views of the chest were obtained. COMPARISON: Chest 2 views 03/30/2023 FINDINGS: Calcified right lung nodules are consistent with old granulomatous disease. No pleural effu godwin or pneumothorax. The heart size is normal. IMPRESSION: 1. No acute cardiopulmonary disease. Reviewed, dictated and finalized at location E.
--- NOTE | 2023-12-26 04:57 | ECG_ITS ---
Test Date: 2023-12-26 05:04:26 Measurements Intervals [place] Rate: 75 P: 128 HI: 156 QRS: -25 QRSD: 99 T: -29 QT: 358 QTc: 402 Interpretive Statements SINUS RHYTHM POSSIBLE LEFT ATRIAL ENLARGEMENT [-0.1mV P WAVE IN V1/V2] INCOMPLETE RIGHT BUNDLE BRANCH BLOCK [90+ ms QRS DURATION, TERMINAL R IN V1/V2, 40+ ms S IN I/aVL/V4/V5/V6] NONSPECIFIC T-WAVE ABNORMALITY No previous ECG available for comparison Electronically Signed On 12-26-2023 12:09:20 CDT by Madhavi Cabello M.D.
[2023-12-26] MEDS: ASPIRIN 81 MG CHEWABLE TABLET 324 MG PO (05:12)
[2023-12-26 05:15] LABS: Basophils Percent Auto 0.5 % (0.2-1.2); Eosinophils Absolute Auto 0.1 K/mm3 (0-0.3); Eosinophils Percent Auto 0.9 % (0-4.4); Hematocrit 39.8 % (37.0-47.0); Immature Granulocyte Absolute 0.03 K/mm3 (0.00-0.031); Immature Granulocyte Percent A 0.4 % (0-0.5); Lymphocytes Absolute Auto 2.21 K/mm3 (0.9-3.2); Lymphocytes Percent Auto 29.6 % (18.3-44.2); Mean Corpuscular HGB Conc 35.2 g/dl (32-36); Mean Corpuscular Hemoglobin 31.1 pg (26-34); Mean Corpuscular Volume 88.4 fl (80-100); Mean Platelet Volume 9.5 fl (7.4-10.4); Monocytes Absolute Auto 0.4 K/mm3 (0.1-0.6); Monocytes Percent Auto 5.4 % (2.6-8.5); Neutrophils Absolute Auto 4.7 K/mm3 (1.3-6.7); Neutrophils Percent Auto 63.2 % (45.5-73.1); Platelet Count Result 288 k/mm3 (150-375); Red Cell Distribution Width 12.3 % (11.5-14.5); White Blood Count 7.5 K/mm3 (4.5-10.0)
[2023-12-26 05:28] LABS: Prothrombin Time 13.7 Seconds (11.1-14.7)
[2023-12-26 05:29] LABS: Partial Thromboplastin Time 30.4 Seconds (22.3-36.8)
[2023-12-26 05:31] LABS: Alanine Aminotransferase 15 U/L (6-35); Albumin Level 4.6 g/dL (3.5-5.1); Alkaline Phosphatase 52 U/L (38-126); Anion Gap 8 mmol/L (4-12); Aspartate Amino Transferase 20 U/L (14-36); Bilirubin,Total 0.4 mg/dL (0.2-1.3); Blood Urea Nitrogen 12 mg/dL (7-17); Calcium 9.5 mg/dL (8.4-10.2); Carbon Dioxide 24 mmol/L (22-30); Chloride 106 mmol/L (98-107); Estimated CRCL calculation 83 ml/min; Estimated Glomerular Filt Rate > 60; Glucose 143 mg/dL (65-110); Lipase 45 U/L (23-300); Potassium 3.5 mmol/L (3.4-5.0); Sodium 138 mmol/L (137-145)
[2023-12-26 05:42] LABS: Troponin I < 0.012 ng/mL (0.000-0.034)
[2023-12-26] MEDS: ONDANSETRON INJ 4 MG/2 ML VIAL IV PUSH (05:48)
[2023-12-26] MEDS: SODIUM CHLORIDE 0.9% IV 1,000 ML 999 ML IV CONT (05:48)
[2023-12-26] MEDS: MORPHINE SULFATE (*CRX) 4 MG/ML INJ IV PUSH (05:48)
[2023-12-26 06:24] LABS: Appearance Urine Clear (Clear); Bilirubin Urine Negative (Negative); Blood Urine Negative (Negative); Color Urine Yellow (Yellow); Glucose Urine UA Negative (Negative); Ketones Urine Negative (Negative); Leukocyte Esterase Ur Negative LEU/UL (Negative); Nitrate Urine Negative (Negative); Protein Urine Negative (Negative); pH Urine 5.5 (5.0-9.0)
--- NOTE | 2023-12-26 06:27 | ED.GENADULT ---
HPI - General Adult General Chief complaint: Chest Pain <Ronald Madden MD - Last Filed: 12/26/23 06:37> Stated complaint: chest pain, radiates to back <Ronald Madden MD - Last Filed: 12/26/23 06:37> Time Seen by Provider: 12/26/23 05:01 <Ronald Madden MD - Last Filed: 12/26/23 06:37> History of Present Illness HPI narrative: Patient 43-year-old female who presents emergency department with chief complaint of chest pain. 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 <Ronald Madden MD - Last Filed: 12/26/23 06:37> Related Data Allergies/adverse reactions: Allergies Allergy/AdvReac Type Severity Reaction Status Date / Time No Known Allergies Allergy Verified 12/26/23 05:06 <Ronald Madden MD - Last Filed: 12/26/23 06:37> Review of Systems Review of Systems: A 10 system review of systems was completed on the patient and is negative except for what is stated in the HPI. Nursing and ancillary documentation was reviewed. <Ronald Madden MD - Last Filed: 12/26/23 06:37> [facility] Past Medical History Medical History: Medical History Bronchitis history of <Ronald Madden MD - Last Filed: 12/26/23 06:37> Social History Social History: Social History Smoking packs per day: 0.5 Smoking cigarettes per day: 10.0 Years smoked: 20 Smoking pack-years: 10.00 Smoking status: Current every day smoker Tobacco type: cigarettes Alcohol intake: current Drinks per week: 2 Alcohol use details: 1-2 DRINKS EVERY COUPLE OF WEEKS Substance use: never Substance use type: does not use Living arrangements: with family Spiritual care concerns: No <Ronald Maddne MD - Last Filed: 12/26/23 06:37> Exam Narrative: GENERAL: Well-appearing, well-nourished, and in no acute distress. HEAD: Normocephalic, atraumatic. EYES: PERRLA and EOMI. ENT: Nares clear, no rhinorrhea or epistaxis. Mucous membranes moist. NECK: Supple. CHEST: Clear to auscultation. No respiratory distress. HEART: Regular rate and rhythm. No murmur heard. Normal peripheral pulses. ABDOMEN: Soft, Tenderness to palpation right upper quadrant, nondistended, normal active bowel sounds. EXTREMITIES: Normal range of motion. No edema. SKIN: Warm, dry, no rash. NEURO: No focal deficits. Alert and oriented x3. PSYCH: Normal mood and affect. <Ronald Madden MD - Last Filed: 12/26/23 06:37> Course Reevaluation(s) Reevaluation #1: Patient care signed out to me with does troponin and ultrasound pending. Patient's repeat troponin was not elevated. Patient ultrasound showed hepatic steatosis with no evidence of acute cholecystitis. Patient was encouraged close follow-up with her primary care physician for additional outpatient cardiac testing. <Paddy Hollis MD - Last Filed: 12/26/23 17:29> Vital Signs Vital signs: Vital Signs Temperature 98.1 F 12/26/23 04:58 Pulse Rate 73 12/26/23 04:58 Respiratory Rate 14 12/26/23 04:58 Blood Pressure 131/86 12/26/23 04:58 Pulse Oximetry 98 12/26/23 04:58 Oxygen Delivery Room Air 12/26/23 04:58 Temperature 98.1 F 12/26/23 04:58 Pulse Rate 82 12/26/23 09:13 Respiratory Rate 20 12/26/23 09:13 Blood Pressure 111/69 12/26/23 09:13 Pulse Oximetry 98 12/26/23 09:13 Oxygen Delivery Room Air 12/26/23 07:30 <Ronald Madden MD
[2023-12-26 06:49] LABS: Add Urine Microscopic? NO; Specific Grav Ur > 1.045 (1.001-1.035)
--- NOTE | 2023-12-26 07:47 | ECG_ITS ---
Test Date: 2023-12-26 08:04:32 Measurements Intervals [place] Rate: 59 P: 0 LA: 153 QRS: 4 QRSD: 104 T: 21 QT: 394 QTc: 393 Interpretive Statements SINUS BRADYCARDIA INCOMPLETE RIGHT BUNDLE BRANCH BLOCK Compared to ECG 12/26/2023 05:04:26 NO SIGNIFICANT CHANGES Electronically Signed On 12-26-2023 12:10:42 CDT by Madhavi Cabello M.D.
[2023-12-26] MEDS: KETOROLAC 15 MG/ML VIAL (*BKC) IV PUSH (08:13)
[2023-12-26 08:31] LABS: Troponin I < 0.012 ng/mL (0.000-0.034)
[2023-12-27 03:20] LABS: Estimated CRCL calculation 83 ml/min; Estimated Glomerular Filt Rate > 60
== END 2023-12-26 09:33 | disposition home or self-care (01) ==
PROVIDERS: Emergency Provider Emergency Medicine
DX: R07.89 Other chest pain (principal); R10.11 Right upper quadrant pain; F17.210 Nicotine dependence, cigarettes, uncomplicated; I45.10 Unspecified right bundle-branch block; R94.31 Abnormal electrocardiogram [ECG] [EKG]; K76.0 Fatty (change of) liver, not elsewhere classified; R00.1 Bradycardia, unspecified
CPT/HCPCS: 36415; 71046; 74177; 76705; 80053; 81003; 83690; 84484; 85025; 85610; 85730; 93005; 96361; 96374; 96375; 99284; A9270; J1885; J2270; J2405; J7030; Q9967

== ENCOUNTER 2024-04-08 08:36 | Outpatient (CLI) | payer OTHER, SELFPAY ==
--- NOTE | ~2024-04-08 | XR_ITS ---
XR shoulder RT min 2V Ordering provider: Lena De Jesus APRN History: . M25.511 - Pain in right shoulder/NON TRAUMA . Comparison: None. FINDINGS: BONES: No acute fracture or dislocation. JOINT SPACES: The acromioclavicular joint is normal. The glenohumeral joint is normal. SOFT TISSUES: Normal. IMPRESSION: No acute osseous abnormality right shoulder. Reviewed, dictated and finalized at location A.
[2024-04-08 09:06] LABS: Hematocrit 42.8 % (37.0-47.0); Hemoglobin 14.9 g/dL (12.0-15.0); Mean Corpuscular HGB Conc 34.8 g/dl (32-36); Mean Corpuscular Hemoglobin 31.5 pg (26-34); Mean Corpuscular Volume 90.5 fl (80-100); Mean Platelet Volume 9.9 fl (7.4-10.4); Platelet Count Result 296 k/mm3 (150-375); Red Blood Count 4.73 M/mm3 (4.2-5.4); White Blood Count 5.8 K/mm3 (4.5-10.0)
[2024-04-08 09:21] LABS: Alanine Aminotransferase 19 U/L (6-35); Albumin Level 4.6 g/dL (3.5-5.1); Alkaline Phosphatase 47 U/L (38-126); Anion Gap 9 mmol/L (4-12); Aspartate Amino Transferase 22 U/L (14-36); Bilirubin,Total 0.4 mg/dL (0.2-1.3); Blood Urea Nitrogen 8 mg/dL (7-17); Calcium 9.3 mg/dL (8.4-10.2); Carbon Dioxide 25 mmol/L (22-30); Chloride 104 mmol/L (98-107); Cholesterol 246 mg/dL (0-200); Estimated Glomerular Filt Rate > 60; Glucose 129 mg/dL (65-110); HDL Direct 46 mg/dL; Sodium 138 mmol/L (137-145); Triglycerides 168 mg/dL (<150)
[2024-04-08 09:32] LABS: LDL Cholesterol Direct 163 mg/dL
[2024-04-08 10:06] LABS: Thyroid Stimulating Hormone Reflex 0.848 uIU/mL (0.465-4.68)
== END 2024-04-08 08:37 | disposition home or self-care (01) ==
LOC: ANHIMG 08:38
PROVIDERS: PCP Nurse Practitioner Family; Visit Provider Nurse Practitioner Family
DX: M25.511 Pain in right shoulder (principal); Z12.39 Encounter for other screening for malignant neoplasm of breast; Z13.29 Encounter for screening for other suspected endocrine disorder; Z13.220 Encounter for screening for lipoid disorders
CPT/HCPCS: 36415; 73030; 80053; 80061; 84443; 85027

== ENCOUNTER 2024-04-11 14:33 | Outpatient (CLI) | payer OTHER, SELFPAY ==
--- NOTE | ~2024-04-11 | MM_ITS ---
EXAMINATION: MM screening kofi BI w chaim HISTORY: Screening TECHNIQUE: Craniocaudal and mediolateral oblique 3-D tomosynthesis images were obtained and synthetic 2-D images were generated. CAD analysis was submitted and interpreted. COMPARISON: 11/02/2021 BREAST PARENCHYMAL COMPOSITION: Not dense: There are scattered areas of fibroglandular density. FINDINGS: There is no evidence of suspicious mass, calcification, or architectural distortion to sugg est malignancy in either breast. There has been no suspicious interval change. IMPRESSION: 1. No mammographic evidence of malignancy. 2. Recommend routine screening mammography in one year. BI-RADS Category 1: Negative Reviewed, dictated and finalized at location B.
== END 2024-04-11 14:34 | disposition home or self-care (01) ==
PROVIDERS: PCP Nurse Practitioner Family; Visit Provider Nurse Practitioner Family
DX: Z12.31 Encounter for screening mammogram for malignant neoplasm of breast (principal)
CPT/HCPCS: 77063; 77067